=== PATIENT | female | born 1955 | race Caucasian/White ===

== ENCOUNTER → 2016-05-28 | Outpatient (CLI) | payer OTHER ==
[~2016-05-28] MED LIST: 00186-0372-20 IH; AMITRIPTYLINE H10 M1 PO; AMITRIPTYLINE H25 M1 PO; ASPIRIN E.C. 8181 MG PO; ATACAND HCT 161 TAB PO; BENEFIBER; BIOTIN1 POW PO; BUSPAR10 MG PO; CARDI-OMEGA1000 MG PO; DULCOLAX TAB5 MG PO; EFFEXOR-XR150 MG PO; ESTRING0.0075 MG/ VG; FEMRING0.1 MG/24 VG; FIORICET 325 MG1 TA1 PO; IRON TABLETS325 MG PO; IRON325 M1 PO; LAMISIL250 M1; LASIX 20MG TABL20 MG PO; LIBRIUM 10M10 MG/CAP PO; LIDODERM 5% PATC1 EA TP; MAGNESIUM OIL TOP; MOTRIN 800800 MG/TAB PO; MUCINEX DM 30 M1 TE1 PO; MULTI VITAMINS1 TAB PO; NATURE'S BLE1000 MCG PO; PERCOCET 325 MG1 TA2 PO; PERIDEX (CHLOR480 ML MM; PROAIR HFA0.09 MG/AC IH; PROVENTIL0.09 MG/A1 IH; REFRESH PLUS 00.4 M1 OP; ROBAXIN 50500 MG/TAB PO; RT ADVAIR 128 DISKUS IH; STOOL SOFTENER100 M2 PO; SYMMETREL100 MG PO; TESSALON P100 MG/CAP PO; TIROSINT50 MC1 PO; TYLENOL 500MG500 MG PO; ULTRAM 50MG TAB50 MG PO; VERAMYST27.5 MCG/A NS; VITAMIN B-1000 MCG/T PO; VITAMIN B-650 MG PO; VITAMIN D 1001000 IU PO; VOLTAREN GEL 1%1 TU TP; ZOCOR 10MG10 MG PO; ZYRTEC 10MG10 MG PO; [UNRECOGNIZED DRUG - OTHER] TD; [UNRECOGNIZED DRUG - OTHER] TP
== END ==
LOC: COL.VAS 07:29
DX: Z53.9 Procedure and treatment not carried out, unspecified reason (principal)

== ENCOUNTER 2016-06-13 08:15 | Outpatient (CLI) | payer OTHER ==
[~2016-06-13] VITALS: Ht 167.6 cm; Wt 78.6 kg
[2016-06-13] VITALS (9 sets, daily range): BP systolic 124–139; BP diastolic 57–74; PULSE 69–77; TEMP 98.1
[~2016-06-13 08:15] MED LIST changes: -00186-0372-20 IH; -BENEFIBER; -ESTRING0.0075 MG/ VG; -LIDODERM 5% PATC1 EA TP; -MAGNESIUM OIL TOP; -MULTI VITAMINS1 TAB PO; -NATURE'S BLE1000 MCG PO; -PROVENTIL0.09 MG/A1 IH; -VITAMIN D 1001000 IU PO; -VOLTAREN GEL 1%1 TU TP
[2016-06-13] MEDS ORDERED: 00186-0372-20 IH (08:54)
[2016-06-13] MEDS ORDERED: ESTRING0.0075 MG/ VG (08:55)
[2016-06-13] MEDS ORDERED: VOLTAREN GEL 1%1 TU TP (08:56)
[2016-06-13] MEDS ORDERED: LIDODERM 5% PATC1 EA TP (08:58)
[2016-06-13] MEDS ORDERED: PROVENTIL0.09 MG/A1 IH (09:03)
[2016-06-13] MEDS ORDERED: VITAMIN D 1001000 IU PO (09:06)
[2016-06-13] MEDS ORDERED: MULTI VITAMINS1 TAB PO (09:07)
[2016-06-13] MEDS ORDERED: NATURE'S BLE1000 MCG PO (09:07)
[2016-06-13] MEDS ORDERED: BENEFIBER ×2 (09:08)
[2016-06-13] MEDS ORDERED: MAGNESIUM OIL TOP (09:10)
== END 2016-06-13 12:11 | disposition home or self-care (01) ==
LOC: EUO 08:15 → COL.RAD 08:30 → EUO 12:11
DX: M48.06 Spinal stenosis, lumbar region (principal); M43.16 Spondylolisthesis, lumbar region; Z98.1 Arthrodesis status
CPT/HCPCS: Q9965

== ENCOUNTER → 2016-07-22 | Outpatient (CLI) | payer OTHER ==
[~2016-07-22] MED LIST changes: +00186-0372-20 IH; +BENEFIBER; +ESTRING0.0075 MG/ VG; +LIDODERM 5% PATC1 EA TP; +MAGNESIUM OIL TOP; +MULTI VITAMINS1 TAB PO; +NATURE'S BLE1000 MCG PO; +PROVENTIL0.09 MG/A1 IH; +VITAMIN D 1001000 IU PO; +VOLTAREN GEL 1%1 TU TP
== END ==
LOC: MHCPAIN 10:51
DX: G89.29 Other chronic pain (principal); M47.817 Spondylosis without myelopathy or radiculopathy, lumbosacral region; M54.16 Radiculopathy, lumbar region; M53.3 Sacrococcygeal disorders, not elsewhere classified; M54.81 Occipital neuralgia; M50.90 Cervical disc disorder, unspecified, unspecified cervical region; M96.1 Postlaminectomy syndrome, not elsewhere classified
CPT/HCPCS: G0463

== ENCOUNTER → 2016-08-07 | Outpatient (CLI) | payer OTHER | LOC: MHCPAIN 10:09 | DX: M47.817 Spondylosis without myelopathy or radiculopathy, lumbosacral region (principal) | CPT/HCPCS: J1100; Q9967 ==

== ENCOUNTER → 2016-09-05 | Outpatient (CLI) | payer OTHER | LOC: MHCPAIN 10:04 | DX: G89.29 Other chronic pain (principal); M47.817 Spondylosis without myelopathy or radiculopathy, lumbosacral region; M54.16 Radiculopathy, lumbar region; M53.3 Sacrococcygeal disorders, not elsewhere classified; M96.1 Postlaminectomy syndrome, not elsewhere classified; F17.210 Nicotine dependence, cigarettes, uncomplicated | CPT/HCPCS: G0463 ==

== ENCOUNTER → 2016-09-11 | Outpatient (CLI) | payer OTHER | LOC: MHCPAIN 08:19 | DX: M47.817 Spondylosis without myelopathy or radiculopathy, lumbosacral region (principal); M48.06 Spinal stenosis, lumbar region; M96.1 Postlaminectomy syndrome, not elsewhere classified | CPT/HCPCS: J1100; Q9967 ==

== ENCOUNTER → 2016-11-05 | Outpatient (CLI) | payer OTHER | LOC: MHCPAIN 11:58 | DX: G89.29 Other chronic pain (principal); M47.27 Other spondylosis with radiculopathy, lumbosacral region; M96.1 Postlaminectomy syndrome, not elsewhere classified; F17.210 Nicotine dependence, cigarettes, uncomplicated | CPT/HCPCS: G0463 ==

== ENCOUNTER → 2016-11-05 | Outpatient (CLI) | payer OTHER | LOC: MHCPAIN 11:51 | DX: G89.29 Other chronic pain (principal); M47.27 Other spondylosis with radiculopathy, lumbosacral region; M96.1 Postlaminectomy syndrome, not elsewhere classified; F17.210 Nicotine dependence, cigarettes, uncomplicated | CPT/HCPCS: G0463 ==